=== PATIENT | female | born 1955 | race Asian ===

== ENCOUNTER → 2018-02-07 | Day surgery (SDC) | payer OTHER ==
--- NOTE | 2018-02-08 11:50 | PATH ---
Surgical Pathology Report Patient Name: TESFAYE BREEN [facility]. Rec. #: [id number] /Age/Gender: 1955 (Age: 62) / F Account: [id number] Location: RADIOLOGY [facility] Taken: 02/07/2018 Received: 02/07/2018 Reported: 02/08/2018 Physicians: Marvin Paul M.D. Specimen(s) Received RIGHT BREAST CORE BIOPSY AT 11:00 Clinical History Nonpalpable lesion Ultrasound findings: Probably benign Final Diagnosis RIGHT BREAST, 11:00, ULTRASOUND GUIDED NEEDLE CORE BIOPSY: BENIGN BREAST TISSUE WITH FIBROCYSTIC CHANGES INCLUDING STROMAL FIBROSIS AND DUCTAL DILATATION. RARE MICROCALCIFICATION IDENTIFIED. Comment: Recommend correlation with clinical and radiologic findings and follow up as clinically indicated. Electronically Signed Radhames White M.D. Gross Description Received in formalin labeled "right 11:00," are 5 watt-yellow, cylindrical portions of fibroadipose tissue ranging from 0.2-1.0 cm in length and averaging 0.1 cm in diameter. The specimens are submitted in toto in one cassette. Total formalin fixation time: Between 6-10 hours 02/07/201802/07/2018
== END | disposition home or self-care (01) ==
LOC: JRADUS-SUR 10:17
PROVIDERS: ATTEND Surgery
PROC: 0HBT3ZX Excision of Right Breast, Percutaneous Approach, Diagnostic (ICD-10-PCS; principal; 2018-02-07)
DX: N60.11 Diffuse cystic mastopathy of right breast (principal)
CPT/HCPCS: 19083; 87899; 88305-TC; A4648